=== PATIENT | male | born 1965 | race Caucasian/White ===

== ENCOUNTER 2025-07-21 20:19 | Inpatient (IN) | payer MEDICAID, OTHER ==
[~2025-07-21] VITALS: Ht 177.8 cm; Wt 101.1 kg
[~2025-07-21 20:19] MED LIST: CEPH-37 PO
--- NOTE | 2025-07-21 20:54 | ED.PDOC ---
History of Present Illness HPI Comments 59 year-old male presents to the ED via wheelchair with a chief complaint of constipation and urinary hesitation as of last week after a cruise. Patient reports lower back pain radiating to the R flank, as well as, associated symptoms of Nausea onset as of today. Patient reports taking x3 laxatives today with some relief, approx. X8 BM today. Patient states he is able to urinate properly when applying pressure via palpation to the abdomen. There are no further complaints or modifying factors at this time. Patient otherwise denies symptoms of hematuria, dysuria, N/V/D, fever, or chills. REVIEW OF SYSTEMS: General: No fever, no chills, or fatigue HEENT: No sore throat, no earache, no congestion, no neck pain. Cardiac: No chest pain. No palpitations. Lungs: No shortness of breath, no cough. GI: (+) nausea, (+) constipation, no vomiting, no diarrhea, no abdominal pain : (+) urinary hesitation, (+) flank pain, No dysuria. No hematuria. Musculoskeletal: (+) back pain, No joint pain , no joint swelling, no extremity edema. Skin: No rash, no itching. Neuro: No headache, no dizziness, no weakness (And as sated in HPI) PHYSICAL EXAM: General: Awake, alert and oriented. No acute distress. Skin: Skin in warm, dry and intact. Appropriate color for ethnicity. HEENT: The head is normocephalic and atraumatic. Conjunctivae are clear without exudates or hemorrhage. Sclera is non-icteric. Eyelids are normal in appearance without swelling or lesions. Oral mucosa is pink and moist Neck: The neck is supple with normal range of motion. No JVD. Cardiac: Heart rate and rhythm are normal. No murmurs, gallops, or rubs are auscultated. Respiratory: No signs of respiratory distress. Lung sounds are clear in all lobes bilaterally without rales, rhonchi, or wheezes. Abdominal: reducible umbilical hernia, no CVA tenderness, Normal Bowel Sounds in all four quadrants. Extremities: Lower extremities without edema. Neurological: The patient is awake, alert and oriented to person, place, and time with normal speech. Speech is clear. There is no facial asymmetry. Psychiatric: Appropriate mood and affect. Good judgement and insight. Chief Complaint: Flank Pain Time Seen by MD: 20:45 Primary Care Provider: DACIA Avila Notes: Medications, Allergies Allergies: Coded Allergies: NO KNOWN ALLERGIES (Unverified , 05/16/14) Home Meds Active Scripts Cephalexin (Keflex) 500 Mg Cap, 500 MG PO BID, #10 Prov:ARAMIS JIN MD 05/20/14 Information Source: Patient Mode of Arrival: Wheelchair Severity: Moderate Timing: Days Duration: Since onset Past Medical History Past Medical History (Other): hernia Surgical History: Hernia Repair Family History Family History: No family hx of Cancer, No family hx of DM, No family hx of Heart david Social History Smoker: Non-Smoker Alcohol: Rarely Drugs: Denies Drug Use Lives In: Home Was a procedure done? Was a procedure done?: No Differential Dx Considerations may include: Differential diagnoses considered include: Abdominal aortic aneurysm, MD, esophageal rupture, intestinal obstruction, mesenteric ischemia, perforated viscus or solid organ rupture, CHF with hepatomegaly, pneumonia, abscess, appendicitis, biliary disease, diverticulitis, gastritis, gastroenteritis, hepatitis, hernia, inflammatory bowel disease, pancreatitis, peptic ulcer disease, urinary tract infection, ureteral colic, constipation, GERD, irritable syndrome, abdominal wall pain, nonspecific abdominal pain, herpes zoster, nephrolithiasis. [ ]Also ruptured ectopic , ovarian torsion/cyst, tubo- ovarian abscess, PID, endometriosis, mittleschmerz. X-Ray, Labs, Meds, VS Vital Signs Date Time Temp Pulse Resp B/P (MAP) Pulse Ox O2 Delivery O2 Flow Rate FiO2 07/21/25 21:22 97.7 63 16 142/92 (109) 93 97.7 07/21/25 20:23 98.3 68 16 139/74 97 98.3 Lab Test 07/21/25 21:09 07/21/25 20:45 Range/Units White Blood Count 13.1 H 4.4-10.8 10^3/uL Red Blood Count 5.01 4.5-5.90 10^6/uL Hemoglobin 15.2 13.5-17.5 g/dL Hematocrit 44.3 41.0-53.0 % Mean Corpuscular Volume 88.4 80.0-100.0 fL Mean Corpuscular Hemoglobin 30.3 28.0-32.0 pg Mean Corpuscular Hemoglobin Concent 34.2 32.0-36.0 g/dL Red Cell Distribution Width 14.0 11.8-14.3 % Platelet Count 270 140-450 10^3/uL Mean Platelet Volume 8.7 6.9-10.8 fL Neutrophils (%) (Auto) 90.9 H 37.0-80.0 % Lymphocytes (%) (Auto) 4.3 L 10.0-50.0 % Monocytes (%) (Auto) 4.5 0.0-12.0 % Eosinophils (%) (Auto) 0.0 0.0-7.0 % Basophils (%) (Auto) 0.3 0.0-2.0 % Neutrophils # (Auto) 11.9 H 1.6-8.6 10 ^3/uL Lymphocytes # (Auto) 0.6 0.4-5.4 10 ^3/uL Monocytes # (Auto) 0.6 0-1.3 10 ^3/uL Eosinophils # (Auto) 0 0-0.8 10 ^3/uL Basophils # (Auto) 0 0-0.2 10 ^3/uL Nucleated Red Blood Cells 0.1 % Sodium Level 143 136-145 mmol/L Potassium Level 3.7 3.5-5.1 mmol/L Chloride Level 106 98-107 mmol/L Carbon Dioxide Level 23 20-31 mmol/L Anion Gap 14 5-15 Blood Urea Nitrogen 17 9-23 mg/dL Creatinine 1.55 H 0.700-1.30 mg/dL Glomerular Filtration Rate Calc 52 >90 mL/min BUN/Creatinine Ratio 11.0 10.0-20.0 Serum Glucose 186 H 74-106 mg/dL Lactic Acid Level 1.7 0.4-2.0 mmol/L Calcium Level 9.6 8.7-10.4 mg/dL Total Bilirubin 1.5 H 0.2-1.0 mg/dL Aspartate Amino Transferase (AST) 27 13-40 U/L Alanine Aminotransferase (ALT) 29 7-40 U/L Alkaline Phosphatase 61 46-116 U/L Total Protein 7.9 5.7-8.2 g/dL Albumin 4.6 3.2-4.8 g/dL Urine Color Yellow Yellow Urine Clarity Clear Clear Urine pH 5.5 5.0-9.0 Urine Specific [place] 1.024 1.001-1.035 Urine Protein Negative Negative Urine Ketones Negative Negative Urine Blood Negative Negative /uL Urine Nitrite Negative Negative Urine Bilirubin Negative Negative Urine Urobilinogen Normal Negative mg/dL Urine Leukocyte Esterase Negative Negative /uL Urine RBC <1 0 - 3 /hpf Urine Microscopic WBC < 1 0-3 /HPF Urine Squamous Epithelial Cells None seen <5 /hpf Urine Bacteria None seen None Seen /hpf Urine Mucus Few None Seen Urine Glucose Normal Normal mg/dL Current Medications Medications (Trade) Dose Ordered Sig/Joey Route Start Time Stop Time Status Last Admin Ketorolac Tromethamine (Toradol Injection) 30 mg ONCE ONCE IM 07/21/25 21:00 07/21/25 21:01 DC 07/21/25 21:20 Ondansetron HCl (Zofran Po) 4 mg ONCE ONCE PO 07/21/25 21:00 07/21/25 21:01 DC 07/21/25 21:19 [place] [id number] Ph: [phone] DIAGNOSTIC IMAGING Diagnostic Imaging Report : [id number] Signed [id number] UN[facility]: [id number] : 1965 LOC: ER ROOM / BED: / AGE / SEX: 59 / M ADM STATUS: REG ER SERVICE 45 ORDERING PHYSICIAN: HEIDI MALCOLM MD PROCEDURE(s): ABPL - CT AB PEL WO CON-NO ORAL OR IV REASON: low back pain, constipation, difficulty urinating, vomiting ORDER NUMBER(s): [id number], ACCESSION NUMBER(s): [id number] EXAM: CT CT AB PEL WO CON-NO ORAL OR IV INDICATION: low back pain, constipation, difficulty urinating, vomiting TECHNIQUE: Volumetric multidetector CT images of the abdomen and pelvis were obtained without contrast. All CT scans at this facility use dose modulation, iterative reconstruction, and/or weight based dosing when appropriate to reduce radiation dose to as low as reasonably achievable. COMPARISON: None FINDINGS: [LOWER CHEST]: The partially visualized lung bases are clear without a pleural effusion. The cardiac size is normal without pericardial effusion. [LIVER]: Normal hepatic size without suspicious focal lesion. [GALLBLADDER AND BILIARY TREE]: No cholelithiasis. [SPLEEN]: Unremarkable. [PANCREAS]: Unremarkable. [ADRENAL GLANDS]: Unremarkable [KIDNEYS]: Mild bilateral pelviectasis with mild bilateral hydroureter. No nephroureterolithiasis. No suspicious focal lesion. [BLADDER]: Severe prostatomegaly and appearance of outlet obstruction with urinary retention. [REPRODUCTIVE ORGANS]: [BOWEL/MESENTERY]: Stomach is normal. No CT evidence of bowel obstruction. [ASCITES]: Absent [LYMPHADENOPATHY]: No pathologically enlarged lymph nodes by CT size criteria [VASCULATURE]: No aneurysmal dilatation. [ABDOMINAL WALL]: Unremarkable. [MUSCULOSKELETAL]: No acute fracture or aggressive focal osseous lesion. Multifocal degenerative change of the visualized spine. IMPRESSION: 1. Severe prostatomegaly with appearance of urinary retention and bladder outlet obstruction. 2. Mild bilateral pelviectasis and hydroureter. Time of 1ST Reevaluation: 20:49 Reevaluation 1ST: Unchanged Patient Education/Counseling: Need For Follow Up Family Education/Counseling: No Family Present SEPSIS Sepsis Screen Date sepsis recognized/suspect: Jul 21, 2025 Time Sepsis recognized/suspect: 2024 Recent Procedure: No On Antibiotic Therapy: No Respiratory Rate >20: No Heart Rate >90: No Temp<36 C (96.8 F) or >38.3 C: No SBP <90 or MAP <65 mmHG: No New Acute Mental Status Change: No Is the patient on CPAP, BIPAP,: No Physician Orders Ct Ab Pel Wo Con-No Oral Or Iv (07/21/25 20:46) Insert Baker Catheter QSHIFT (07/21/25 21:48) Vital Signs Date Time Temp Pulse Resp B/P (MAP) Pulse Ox O2 Delivery O2 Flow Rate FiO2 07/21/25 21:22 97.7 63 16 142/92 (109) 93 97.7 07/21/25 20:23 98.3 68 16 139/74 97 98.3 Laboratory Tests Test 07/21/25 21:09 Lactic Acid Level 1.7 mmol/L (0.4-2.0) White Blood Count 13.1 10^3/uL (4.4-10.8) H Medications Medications Dose Ordered Sig/Joey Route Start Time Stop Time Status Last Admin Dose Admin Ketorolac Tromethamine 30 mg ONCE ONCE IM 07/21/25 21:00 07/21/25 21:01 DC 07/21/25 21:20 Ondansetron HCl 4 mg ONCE ONCE PO 07/21/25 21:00 07/21/25 21:01 DC 07/21/25 21:19 Departure 1 Departure Time of Disposition: 22:40 Impression: Primary Impression: Urinary retention Disposition: ADMITTED INPATIENT Condition: Stable Comments Patient admitted to hospitalist service for further treatment, evaluation and monitoring. Critical Care Note Critical Care Time?: No Stability Stability form required: No Heart Score Heart Score: Heart Score Response (Comments) Value History N/A 0 EKG N/A 0 Age N/A 0 Risk Factors N/A 0 Troponin N/A 0 Total 0 I personally scribed for HEIDI MALCOLM MD ([email or web address]) on 07/21/25 at 20:53. Electronically submitted by Rachel Uribe ([employer]). I personally scribed for HEIDI MALCOLM MD ([email or web address]) on 07/21/25 at 21:07. Electronically submitted by Rachel Uribe ([employer]). I personally scribed for HEIDI MALCOLM MD ([email or web address]) on 07/21/25 at 21:27. Electronically submitted by Rachel Uribe ([employer]). I personally scribed for HEIDI MALCOLM MD ([email or web address]) on 07/21/25 at 21:29. Electronically submitted by Rachel Uribe ([employer]). I personally scribed for HEIDI MALCOLM MD ([email or web address]) on 07/21/25 at 21:29. Electronically submitted by Rachel Uribe ([employer]). HEIDI MALCOLM MD Jul 21, 2025 20:53
[2025-07-21] MEDS: ONDANSETRON ODT 4 MG TAB PO ONE (21:19)
[2025-07-21] MEDS: KETOROLAC TROMETH 30 MG/ML 1ML VIAL IM ONE (21:20)
[2025-07-21] MEDS: ACETAMINOPHEN 500 MG TAB or CAP PO ONE (21:21)
--- NOTE | 2025-07-21 21:22 | DVH ---
EXAM: CT CT AB PEL WO CON-NO ORAL OR IV INDICATION: low back pain, constipation, difficulty urinating, vomiting TECHNIQUE: Volumetric multidetector CT images of the abdomen and pelvis were obtained without contrast. All CT scans at this facility use dose modulation, iterative reconstruction, and/or weight based dosing when appropriate to reduce radiation dose to as low as reasonably achievable. COMPARISON: None FINDINGS: [LOWER CHEST]: The partially visualized lung bases are clear without a pleural effusion. The cardiac size is normal without pericardial effusion. [LIVER]: Normal hepatic size without suspicious focal lesion. [GALLBLADDER AND BILIARY TREE]: No cholelithiasis. [SPLEEN]: Unremarkable. [PANCREAS]: Unremarkable. [ADRENAL GLANDS]: Unremarkable [KIDNEYS]: Mild bilateral pelviectasis with mild bilateral hydroureter. No nephroureterolithiasis. No suspicious focal lesion. [BLADDER]: Severe prostatomegaly and appearance of outlet obstruction with urinary retention. [REPRODUCTIVE ORGANS]: [BOWEL/MESENTERY]: Stomach is normal. No CT evidence of bowel obstruction. [ASCITES]: Absent [LYMPHADENOPATHY]: No pathologically enlarged lymph nodes by CT size criteria [VASCULATURE]: No aneurysmal dilatation. [ABDOMINAL WALL]: Unremarkable. [MUSCULOSKELETAL]: No acute fracture or aggressive focal osseous lesion. Multifocal degenerative change of the visualized spine. IMPRESSION: 1. Severe prostatomegaly with appearance of urinary retention and bladder outlet obstruction. 2. Mild bilateral pelviectasis and hydroureter.
[2025-07-21 21:37] LABS: Urine Protein, UAD Negative (Negative)
[2025-07-21 21:40] LABS: Alanine Aminotransferase 29 U/L (7-40); Albumin 4.6 g/dL (3.2-4.8); Alkaline Phosphatase 61 U/L (46-116); Anion Gap 14 (5-15); BUN/Creatinine Ratio 11.0 (10.0-20.0); Blood Urea Nitrogen 17 mg/dL (9-23); Calcium 9.6 mg/dL (8.7-10.4); Carbon Dioxide 23 mmol/L (20-31); Chloride 106 mmol/L (98-107); Potassium 3.7 mmol/L (3.5-5.1); Sodium 143 mmol/L (136-145); Total Protein 7.9 g/dL (5.7-8.2)
[2025-07-21 21:44] LABS: Bilirubin, Total 1.5 mg/dL (0.2-1.0); Glucose 186 mg/dL (74-106)
[2025-07-21 22:05] VITALS: PULSE 70; RESP 14; O2SAT 95
[2025-07-21 22:09] LABS: Hematocrit 44.3 % (41.0-53.0); Hemoglobin 15.2 g/dL (13.5-17.5); Mean Corpuscular Hemoglobin 30.3 pg (28.0-32.0); Mean Corpuscular Volume 88.4 fL (80.0-100.0); Nucleated Red Blood Cells % 0.1 %
[2025-07-22] MEDS ORDERED: ACETAMINOPHEN 325 MG TAB PO SCH
[2025-07-22] MEDS ORDERED: ONDANSETRON HCL 4 MG/2 ML VIAL IV PRN ×2 (00:15)
[2025-07-22 00:19] LABS: Phencyclidine Screen, Urine Neg (NEGATIVE)
[2025-07-22 00:21] LABS: Amphetamine Screen, Urine Neg (NEGATIVE); Barbiturate Scree,Urine Neg (NEGATIVE); Benzodiazephine Screen, Urine Neg (NEGATIVE); Cannabinoid Screen, Urine Neg (NEGATIVE); Cocaine Screen, Urine Neg (NEGATIVE); Opiate Scree,Urine Neg (NEGATIVE)
--- NOTE | 2025-07-22 00:53 | DVH ---
INDICATION: urinary retension TECHNIQUE: Multiple real-time sonographic images of the kidneys and bladder were obtained. COMPARISON: None FINDINGS: RIGHT kidney measures 11.5 cm in length. No stones or hydronephrosis. LEFT kidney measures 10.8 cm in length. No stones or hydronephrosis. Baker catheter in-situ, limiting assessment of the urinary bladder. Prostate gland is enlarged with estimated volume of 48 cc. IMPRESSION: BPH.
[2025-07-22] MEDS: SODIUM CHLORIDE 0.9% 500 ML IV ONE ×2 (01:30→14:23)
--- NOTE | 2025-07-22 01:31 | DVHHPRES ---
History of Present Illness Resident Creating Document: PETE BREWER RESIDENT History of Present Illness Patient is a 59-year-old male with no significant past medical history who presented to the ED with chief complaints of urinary urgency, difficulty urinating since 3 days while on a cruise. Patient states that earlier today he had bilateral flank pain as well as back pain which was 10/10 in intensity, nonradiating, constant, decreased after urination and defecation, and associated with nausea. Patient reports that he took laxatives and had 7 bowel movements which relieved his urinary symptoms. Patient also states that he has had similar symptoms 1 time in the past year. PSHx: Three inguinal repairs Family history: father had non-Hodgkin lymphoma Social history: denies smoking, drinking, drug use Home medication: denies any home medication Allergic history: denies Patient seen at bedside. Patient at this time does not complain of any pain, nausea, vomiting, Fever, chills, diarrhea. Patient has had multiple bowel movements. Review of Systems Constitutional: No: Fever, Chills, Sweats, Weakness, Malaise, Other Eyes: No: Pain, Vision change, Conjunctivae inflammation, Eyelid inflammation, Other, Redness ENT: No: Ear pain, Ear discharge, Nose pain, Nose discharge, Nose congestion, Mouth pain, Mouth swelling, Throat pain, Throat swelling, Other Respiratory: No: Cough, Dry, Shortness of breath, SOB with excertion, Wheezing, Hemoptysis, Pleuritic Pain, Sputum, Wheezing, Other Cardiovascular: No: Chest Pain, Palpitations, Orthopnea, Paroxysmal Noc. Dyspnea, Edema, Lt Headedness, Other Gastrointestinal: Nausea; No: Vomiting, Abdominal Pain, Diarrhea, Constipation, Melena, Hematochezia, Other Genitourinary: Dysuria, Frequency, Retention, Other (Bilateral Flank pain) Musculoskeletal: back pain; No: other, neck pain, shoulder pain, arm pain, hand pain, leg pain, foot pain Skin: No: Rash, Lesions, Jaundice, Bruising, Other Neurological: No: Weakness, Numbness, Incoordination, Change in speech, Confusion, Seizures, Other Allergies: Coded Allergies: NO KNOWN ALLERGIES (Unverified , 05/16/14) Exam Vital Signs Vital Signs Date Time Temp Pulse Resp B/P (MAP) Pulse Ox O2 Delivery O2 Flow Rate FiO2 07/21/25 21:22 97.7 63 16 142/92 (109) 93 97.7 Exam General: Patient alert and oriented in person, place and time. Patient following commands. HEENT: Normocephalic, atraumatic, moist mucous membranes Respiratory/pulmonary: Clear lungs bilaterally, vesicular murmurs present in almost all lung dykes, no associated crackles or wheezes. Cardiovascular: Normal heart sounds S1 and S2 with no associated murmurs Abdomen: Abdomen nondistended, there is no pain to palpation in any of the abdominal quadrants, no palpable masses. Baker catheter in place. Extremities: There is no peripheral edema present at the lower extremities. Peripheral Pulses: 3+ Radial (R). 3+ Radial (L). 3+ Dorsalis pedis (R). 3+ Dorsalis pedis(L) Skin: No rashes or pruritus, there is no sacral edema present at this time. Neurological: Intact cranial nerves with no focal neurologic deficits Labs/Xrays Labs Test 07/21/25 21:09 07/21/25 20:45 Range/Units White Blood Count 13.1 H 4.4-10.8 10^3/uL Red Blood Count 5.01 4.5-5.90 10^6/uL Hemoglobin 15.2 13.5-17.5 g/dL Hematocrit 44.3 41.0-53.0 % Mean Corpuscular Volume 88.4 80.0-100.0 fL Mean Corpuscular Hemoglobin 30.3 28.0-32.0 pg Mean Corpuscular Hemoglobin Concent 34.2 32.0-36.0 g/dL Red Cell Distribution Width 14.0 11.8-14.3 % Platelet Count 270 140-450 10^3/uL Mean Platelet Volume 8.7 6.9-10.8 fL Neutrophils (%) (Auto) 90.9 H 37.0-80.0 % Lymphocytes (%) (Auto) 4.3 L 10.0-50.0 % Monocytes (%) (Auto) 4.5 0.0-12.0 % Eosinophils (%) (Auto) 0.0 0.0-7.0 % Basophils (%) (Auto) 0.3 0.0-2.0 % Neutrophils # (Auto) 11.9 H 1.6-8.6 10 ^3/uL Lymphocytes # (Auto) 0.6 0.4-5.4 10 ^3/uL Monocytes # (Auto) 0.6 0-1.3 10 ^3/uL Eosinophils # (Auto) 0 0-0.8 10 ^3/uL Basophils # (Auto) 0 0-0.2 10 ^3/uL Nucleated Red Blood Cells 0.1 % Sodium Level 143 136-145 mmol/L Potassium Level 3.7 3.5-5.1 mmol/L Chloride Level 106 98-107 mmol/L Carbon Dioxide Level 23 20-31 mmol/L Anion Gap 14 5-15 Blood Urea Nitrogen 17 9-23 mg/dL Creatinine 1.55 H 0.700-1.30 mg/dL Glomerular Filtration Rate Calc 52 >90 mL/min BUN/Creatinine Ratio 11.0 10.0-20.0 Serum Glucose 186 H 74-106 mg/dL Lactic Acid Level 1.7 0.4-2.0 mmol/L Calcium Level 9.6 8.7-10.4 mg/dL Total Bilirubin 1.5 H 0.2-1.0 mg/dL Aspartate Amino Transferase (AST) 27 13-40 U/L Alanine Aminotransferase (ALT) 29 7-40 U/L Alkaline Phosphatase 61 46-116 U/L Total Protein 7.9 5.7-8.2 g/dL Albumin 4.6 3.2-4.8 g/dL Urine Color Yellow Yellow Urine Clarity Clear Clear Urine pH 5.5 5.0-9.0 Urine Specific [place] 1.024 1.001-1.035 Urine Protein Negative Negative Urine Ketones Negative Negative Urine Blood Negative Negative /uL Urine Nitrite Negative Negative Urine Bilirubin Negative Negative Urine Urobilinogen Normal Negative mg/dL Urine Leukocyte Esterase Negative Negative /uL Urine RBC <1 0 - 3 /hpf Urine Microscopic WBC < 1 0-3 /HPF Urine Squamous Epithelial Cells None seen <5 /hpf Urine Bacteria None seen None Seen /hpf Urine Mucus Few None Seen Urine Glucose Normal Normal mg/dL Urine Opiates Screen Neg NEGATIVE Urine Fentanyl Screen Neg NEGATIVE Urine Barbiturates Screen Neg NEGATIVE Urine Phencyclidine Screen Neg NEGATIVE Urine Amphetamines Screen Neg NEGATIVE Urine Benzodiazepines Screen Neg NEGATIVE Urine Cocaine Screen Neg NEGATIVE Urine Cannabinoids Screen Neg NEGATIVE SEPSIS Sepsis Screen Date sepsis recognized/suspect: Jul 22, 2025 Time Sepsis recognized/suspect: 2254 Recent Procedure: No On Antibiotic Therapy: No Respiratory Rate >20: No Heart Rate >90: No Temp<36 C (96.8 F) or >38.3 C: No SBP <90 or MAP <65 mmHG: No New Acute Mental Status Change: No Is the patient on CPAP, BIPAP,: No Physician Orders Ct Ab Pel Wo Con-No Oral Or Iv (07/21/25 20:46) Insert Baker Catheter QSHIFT (07/21/25 21:48) Admit (07/21/25 23:46) Code Status (07/21/25:46) Complete Blood Count (07/22/25 04:00) Comprehensive Metabolic Panel (07/22/25 04:00) Condition: Critical (07/21/25 23:46) Bedrest With Bathroom Privileg (07/21/25 23:46) Stat Ekg For Chest Pain (07/21/25 23:46) Notify Md Of Changes From Base (07/21/25 23:46) 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 (07/21/25 23:46) Emergency Dysrhythmia Protocol (07/21/25 23:46) Rhythm Strips Once Every Shift (07/21/25 23:46) Psa Total+% Free (07/21/25 23:46) * Urology Consult (07/21/25 23:46) Strict I & O QSHIFT (07/21/25 23:46) Kidney (07/22/25 00:00) Ondansetron Hcl (Zofran) (07/22/25 00:15) Acetaminophen Tablet (Tylenol Tablet) (07/22/25 00:15) Tamsulosin Hydrochloride (Flomax) (07/22/25 18:00) Regular Diet (07/22/25 Breakfast) Pantoprazole Tablet (Protonix Tablet) (07/22/25 06:00) Enoxaparin Sodium (Lovenox) (07/22/25 01:30) Vital Signs Date Time Temp Pulse Resp B/P (MAP) Pulse Ox O2 Delivery O2 Flow Rate FiO2 07/21/25 21:22 97.7 63 16 142/92 (109) 93 97.7 07/21/25 20:23 98.3 68 16 139/74 97 98.3 Laboratory Tests Test 07/21/25 21:09 Lactic Acid Level 1.7 mmol/L (0.4-2.0) White Blood Count 13.1 10^3/uL (4.4-10.8) H Medications Medications Dose Ordered Sig/Joey Route Start Time Stop Time Status Last Admin Dose Admin Ketorolac Tromethamine 30 mg ONCE ONCE IM 07/21/25 21:00 07/21/25 21:01 DC 07/21/25 21:20 30 MG Ondansetron HCl 4 mg ONCE ONCE PO 07/21/25 21:00 07/21/25 21:01 DC 07/21/25 21:19 4 MG Assessment/Plan Assessment/Plan BPH Urinary retention Hydronephrosis AZAM due to be [place] SIRS positive with AZAM - CT abdomen showed Severe prostatomegaly with appearance of urinary retention and bladder outlet obstruction. Mild bilateral pelviectasis and hydroureter. - renal ultrasound: - IV fluids - pain management - tamsulosin 0.4 - urology consulted Regular diet PPI prophylaxis: Protonix DVT prophylaxis: Lovenox Goals of care addressed with the patient for more than 27 minutes: Full code status Case discussed with Dr. Salvador , patient and nurse Plan discussed with: Patient My Orders Orders - PETE BREWER RESIDENT Procedure Category Date Status Time Admit ADMIT 07/21/25 Transmitted 23:46 Code Status CODE 07/21/25 Transmitted 23:46 Complete Blood Count LAB 07/22/25 Logged 04:00 Comprehensive LAB 07/22/25 Logged Metabolic Panel 04:00 Condition: Critical [facility] 07/21/25 In Process 23:46 Bedrest With Bathroom [facility] 07/21/25 In Process Privileg 23:46 Stat Ekg For Chest [facility] 07/21/25 In Process Pain 23:46 Notify Md Of Changes [facility] 07/21/25 In Process From Base 23:46 Petroleum Plant Operator For [facility] 07/21/25 In Process 24 Hours 23:46 Emergency Dysrhythmia [facility] 07/21/25 In Process Protocol 23:46 Rhythm Strips Once [facility] 07/21/25 In Process Every Shift 23:46 Psa Total+% Free LAB 07/21/25 In Process 23:46 * Urology Consult CONS 07/21/25 Transmitted 23:46 Strict I & O NIDHI 07/21/25 In Process 23:46 Kidney US 07/22/25 Resulted 00:00 Ondansetron Hcl PHA 07/22/25 In Process (Zofran) 00:15 Acetaminophen Tablet PHA 07/22/25 In Process (Tylenol Tablet) 00:15 Tamsulosin PHA 07/22/25 In Process Hydrochloride (Flomax) 18:00 Regular Diet DIET 07/22/25 Verified Breakfast Pantoprazole Tablet PHA 07/22/25 Verified (Protonix Tablet) 06:00 Enoxaparin Sodium PHA 07/22/25 Verified (Lovenox) 01:30 Visit Coding STANDARD RES Billing Provider: OSORIO SALVADOR MD Date of Service if different f: Jul 22, 2025 Common Visit Codes: [id number] INP/OBS CARE (HIGH) Secondary Visit Codes: [id number] CARE PLAN 30 MINUTES PETE BREWER RESIDENT Jul 22, 2025 01:31
[2025-07-22] MEDS: ENOXAPARIN SOD 40 MG/0.4 ML SYRINGE SC ONE (01:57)
[2025-07-22 04:03] VITALS: BP 119/69; PULSE 54; RESP 17; TEMP 97.7; O2SAT 97
[2025-07-22 04:24] VITALS: BP 119/69; PULSE 54; RESP 17; TEMP 97.7; O2SAT 97
[2025-07-22] MEDS: ACETAMINOPHEN 325 MG TAB PO SCH (06:00)
[2025-07-22] MEDS: PANTOPRAZOLE 40 MG TAB PO SCH (06:06)
[2025-07-22 06:08] LABS: Hematocrit 39.7 % (41.0-53.0); Hemoglobin 13.7 g/dL (13.5-17.5); Mean Corpuscular Hemoglobin 30.9 pg (28.0-32.0); Mean Corpuscular Volume 89.5 fL (80.0-100.0); Nucleated Red Blood Cells % 0.0 %
[2025-07-22 06:32] LABS: Alanine Aminotransferase 25 U/L (7-40); Albumin 4.1 g/dL (3.2-4.8); Alkaline Phosphatase 49 U/L (46-116); Anion Gap 13 (5-15); BUN/Creatinine Ratio 15.6 (10.0-20.0); Blood Urea Nitrogen 21 mg/dL (9-23); Calcium 9.1 mg/dL (8.7-10.4); Carbon Dioxide 27 mmol/L (20-31); Chloride 104 mmol/L (98-107); Potassium 4.0 mmol/L (3.5-5.1); Sodium 144 mmol/L (136-145); Total Protein 6.8 g/dL (5.7-8.2)
[2025-07-22 06:35] LABS: Bilirubin, Total 1.5 mg/dL (0.2-1.0); Glucose 178 mg/dL (74-106)
[2025-07-22 09:00] VITALS: BP 107/63; PULSE 56; RESP 18; TEMP 99; O2SAT 95
--- NOTE | 2025-07-22 09:03 | DVH ---
INDICATION: Elevated bilirubin, rule out cirrhosis/steatosis TECHNIQUE: Multiple real-time sonographic images of the abdomen were obtained. COMPARISON: None FINDINGS: The liver is heterogeneous in echogenicity. The liver measures 14cm. No intrahepatic biliary ductal dilatation is noted. The gallbladder wall measures 0.2 cm and is unremarkable. No gallstones or sludge is seen. The common duct measures 0.4 cm and is unremarkable. No pericholecystic fluid is noted. The right kidney measures 11cm. No hydronephrosis. The spleen measures 11cm, within normal limits. The echogenicity is within normal limits. The pancreas is not well visualized due to obscuration from bowel gas. The visualized portions of the IVC and aorta are grossly unremarkable. IMPRESSION: Hepatic steatosis.
[2025-07-22 13:00] VITALS: BP 95/62; PULSE 62; RESP 18; TEMP 97; O2SAT 96
[2025-07-22 13:51] LABS: INR 0.98 (0.9-1.15); Partial Thromboplastin Time 28.4 SEC (24.5-34.5); Prothrombin Time 10.4 sec (9.3-11.8)
--- NOTE | 2025-07-22 14:24 | DVHINCON2 ---
Date of service: Jul 22, 2025 Referring Physician Hospitalist Reason for Consultation Urinary retention Severe prostatemegaly History of Present Illness 59-year-old male with no significant past medical history who presented to the ED with chief complaints of urinary urgency, difficulty urinating since 3 days while on a cruise. Patient states that earlier today he had bilateral flank pain as well as back pain which was 10/10 in intensity, nonradiating, constant, decreased after urination and defecation, and associated with nausea. Patient reports that he took laxatives and had 7 bowel movements which relieved his urinary symptoms. Patient also states that he has had similar symptoms 1 time in the past year. Past Surgical History Three inguinal hernia repairs Family History: FH: cancer G8 FATHER Family history: Cardiovascular disease G8 MOTHER, G8 FATHER Ischemic heart disease G8 MOTHER, Allergies: Coded Allergies: NO KNOWN ALLERGIES (Unverified , 05/16/14) Home Meds No Active Prescriptions or Reported Meds Current Medications Current Medications Medications (Trade) Dose Ordered Sig/Joey Route PRN Reason Start Time Stop Time Status Last Admin Ondansetron HCl (Zofran) 4 mg Q4HP PRN IV NAUSEA / VOMITING 07/22/25 00:00 07/22/25 00:04 DC Acetaminophen (Tylenol Tablet) 650 mg Q6HR PO 07/22/25 00:00 07/22/25 00:04 DC Tamsulosin HCl (Flomax) 0.4 mg QPM PO 07/22/25 18:00 07/22/25 00:04 DC Ondansetron HCl (Zofran) 4 mg Q4HP PRN IV NAUSEA / VOMITING 07/22/25 00:15 Acetaminophen (Tylenol Tablet) 650 mg Q6HR PO 07/22/25 00:15 07/22/25 12:51 Tamsulosin HCl (Flomax) 0.4 mg QPM PO 07/22/25 18:00 07/22/25 04:07 DC Pantoprazole Sodium (Protonix Tablet) 40 mg DAILY@0600 PO 07/22/25 06:00 07/22/25 06:06 Tamsulosin HCl (Flomax) 0.8 mg QPM PO 07/22/25 18:00 Heparin Sodium (Porcine) 5,000 units Q12HR SC 07/22/25 22:00 Review of Systems Constitutional: No: Fever, Chills, Sweats, Weakness, Malaise, Other Eyes: No: Pain, Vision change, Conjunctivae inflammation, Eyelid inflammation, Other, Redness ENT: No: Ear pain, Ear discharge, Nose pain, Nose discharge, Nose congestion, Mouth pain, Mouth swelling, Throat pain, Throat swelling, Other Respiratory: No: Cough, Dry, Shortness of breath, SOB with excertion, Wheezing, Hemoptysis, Pleuritic Pain, Sputum, Wheezing, Other Cardiovascular: No: Chest Pain, Palpitations, Orthopnea, Paroxysmal Noc. Dyspnea, Edema, Lt Headedness, Other Gastrointestinal: Nausea; No: Vomiting, Abdominal Pain, Diarrhea, Constipation, Melena, Hematochezia, Other Genitourinary: Dysuria, Frequency, Retention, Other (Bilateral Flank pain) Musculoskeletal: back pain; No: other, neck pain, shoulder pain, arm pain, hand pain, leg pain, foot pain Skin: No: Rash, Lesions, Jaundice, Bruising, Other Neurological: No: Weakness, Numbness, Incoordination, Change in speech, Confusion, Seizures, Other Allergies: Coded Allergies: NO KNOWN ALLERGIES (Unverified , 05/16/14) Vital Signs Vital Signs Date Time Temp Pulse Resp B/P (MAP) Pulse Ox O2 Delivery O2 Flow Rate FiO2 07/22/25 13:00 97.0 62 18 95/62 (73) 96 97.0 07/22/25 08:00 Room Air* 0 21 Physical Exam Vital Signs Date Time Temp Pulse Resp B/P (MAP) Pulse Ox O2 Delivery O2 Flow Rate FiO2 07/21/25 21:22 97.7 63 16 142/92 (109) 93 97.7 Exam General: Patient alert and oriented in person, place and time. Patient following commands. HEENT: Normocephalic, atraumatic, moist mucous membranes Respiratory/pulmonary: Clear lungs bilaterally, vesicular murmurs present in almost all lung dykes, no associated crackles or wheezes. Cardiovascular: Normal heart sounds S1 and S2 with no associated murmurs Abdomen: Abdomen nondistended, there is no pain to palpation in any of the abdominal quadrants, no palpable masses. Baker catheter in place. Extremities: There is no peripheral edema present at the lower extremities. Peripheral Pulses: 3+ Radial (R). 3+ Radial (L). 3+ Dorsalis pedis (R). 3+ Dorsalis pedis(L) Skin: No rashes or pruritus, there is no sacral edema present at this time. Neurological: Intact cranial nerves with no focal neurologic deficits Labs/Diagnostic Data Labs Test 07/22/25 13:23 07/22/25 04:50 07/21/25 21:09 07/21/25 20:45 Range/Units Prothrombin Time 10.4 9.3-11.8 sec Prothrombin Time INR 0.98 0.9-1.15 Activated Partial Thromboplast Time 28.4 24.5-34.5 SEC White Blood Count 9.7 # 4.4-10.8 10^3/uL Red Blood Count 4.44 L 4.5-5.90 10^6/uL Hemoglobin 13.7 13.5-17.5 g/dL Hematocrit 39.7 #L 41.0-53.0 % Mean Corpuscular Volume 89.5 80.0-100.0 fL Mean Corpuscular Hemoglobin 30.9 28.0-32.0 pg Mean Corpuscular Hemoglobin Concent 34.5 32.0-36.0 g/dL Red Cell Distribution Width 13.9 11.8-14.3 % Platelet Count 233 140-450 10^3/uL Mean Platelet Volume 8.5 6.9-10.8 fL Neutrophils (%) (Auto) 77.8 37.0-80.0 % Lymphocytes (%) (Auto) 14.5 10.0-50.0 % Monocytes (%) (Auto) 7.5 0.0-12.0 % Eosinophils (%) (Auto) 0.1 0.0-7.0 % Basophils (%) (Auto) 0.1 0.0-2.0 % Neutrophils # (Auto) 7.5 1.6-8.6 10 ^3/uL Lymphocytes # (Auto) 1.4 0.4-5.4 10 ^3/uL Monocytes # (Auto) 0.7 0-1.3 10 ^3/uL Eosinophils # (Auto) 0 0-0.8 10 ^3/uL Basophils # (Auto) 0 0-0.2 10 ^3/uL Nucleated Red Blood Cells 0.0 % Sodium Level 144 136-145 mmol/L Potassium Level 4.0 3.5-5.1 mmol/L Chloride Level 104 98-107 mmol/L Carbon Dioxide Level 27 20-31 mmol/L Anion Gap 13 5-15 Blood Urea Nitrogen 21 9-23 mg/dL Creatinine 1.35 H 0.700-1.30 mg/dL Glomerular Filtration Rate Calc 61 >90 mL/min BUN/Creatinine Ratio 15.6 10.0-20.0 Serum Glucose 178 H 74-106 mg/dL Hemoglobin A1c 6.1 H <5.7 % A1C Calcium Level 9.1 8.7-10.4 mg/dL Total Bilirubin 1.5 H 0.2-1.0 mg/dL Direct Bilirubin 0.5 H <0.3 mg/dL Aspartate Amino Transferase (AST) 23 13-40 U/L Alanine Aminotransferase (ALT) 25 7-40 U/L Alkaline Phosphatase 49 46-116 U/L Lactate Dehydrogenase 248 H 120-246 U/L Total Protein 6.8 5.7-8.2 g/dL Albumin 4.1 3.2-4.8 g/dL Vitamin B12 Level 475 211-911 pg/mL Vitamin D 25-Hydroxy 34.0 30.0-100 ng/mL Folic Acid 23.69 >5.38 ng/mL Thyroid Stimulating Hormone (TSH) 0.24 L 0.55-4.78 uIU/mL Lactic Acid Level 1.7 0.4-2.0 mmol/L Urine Color Yellow Yellow Urine Clarity Clear Clear Urine pH 5.5 5.0-9.0 Urine Specific [place] 1.024 1.001-1.035 Urine Protein Negative Negative Urine Ketones Negative Negative Urine Blood Negative Negative /uL Urine Nitrite Negative Negative Urine Bilirubin Negative Negative Urine Urobilinogen Normal Negative mg/dL Urine Leukocyte Esterase Negative Negative /uL Urine RBC <1 0 - 3 /hpf Urine Microscopic WBC < 1 0-3 /HPF Urine Squamous Epithelial Cells None seen <5 /hpf Urine Bacteria None seen None Seen /hpf Urine Mucus Few None Seen Urine Glucose Normal Normal mg/dL Urine Opiates Screen Neg NEGATIVE Urine Fentanyl Screen Neg NEGATIVE Urine Barbiturates Screen Neg NEGATIVE Urine Phencyclidine Screen Neg NEGATIVE Urine Amphetamines Screen Neg NEGATIVE Urine Benzodiazepines Screen Neg NEGATIVE Urine Cocaine Screen Neg NEGATIVE Urine Cannabinoids Screen Neg NEGATIVE Assessment BPH Urinary retention Azotemia creatinine 1.55 Plan/Recommendation Baker to gravity and leg bag for discharge PSA OUtpatient cystoscopy TBA Plan discussed with: Patient, Other EZIO ANGELO MD Jul 22, 2025 14:24
--- NOTE | 2025-07-22 16:23 | DVHPNRES ---
Progress Note Date Seen: Jul 22, 2025 Resident Creating Document: RAMANA WALLER RESIDENT Medical Necessity Reason Pt with a Central, PICC or Fol: No Subjective Review of Systems Patient is 59 years old male with no significant past medical history came with a complaint of acute retention of urine. Patient reported he has been having urinary dribbling, urgency, difficulty in micturition time to time which got worse for last 3 days. Patient reported he used to take over the counter medication from [employer] which helped him with the urinary problem but last 3 days he had difficulty in urinating has been some nausea. Patient denied any fever, leg swelling, chest pain, shortness of breaths, change in vision. Initial lab workup revealed leukocytosis WBC 13.1, neutrophilic leukocytosis with neutrophil 90.9, serum creatinine 1.55, GFR 52. Total bilirubin 1.5, indirect bilirubin 0.5, LDH 248, INR 0.98. UDS negative, urinalysis negative for UTI. CT abdomen and pelvis Severe prostatomegaly with appearance of urinary retention and bladder outlet obstruction. Mild bilateral pelviectasis and hydroureter. Renal ultrasound revealed BPH. Liver ultrasound revealed hepatic steatosis. PMH-nonsignificant PSH- hernia repair Allergy-and kidney Personal History/ Social History- denies smoking/alcoholism/drug abuse ROS Cardiovascular- deny acute chest pain or shortness of breath or cough or palpitation Respiratory denies cough or short of breath or wheezing Gastrointestinal- nausea Musculoskeletal-denies acute joint swelling or tenderness or redness Neurological- denies acute dysarthria, dysphagia, change in vision Psychiatry- denies depression or SI or HI Skin- denies acute rash or purpura Patient was seen today at bedside Labs and chart reviewed Patient on Baker's catheter with a high color urine Ordered repeat urine analysis Patient was seen by Urology, recommended outpatient cystoscopy Serum creatinine trending down, Ordered normal saline intravenous 500 mL Pending PSA Patient on Flomax and finasteride Objective vital signs Vital Sign Date Time Temp Pulse Resp B/P (MAP) Pulse Ox O2 Delivery O2 Flow Rate FiO2 07/22/25 13:00 97.0 62 18 95/62 (73) 96 97.0 07/22/25 08:00 Room Air* 0 21 Total Intake and Output 07/21/25 07/21/25 07/22/25 15:00 23:00 07:00 Intake Total 836 ml Balance 836 ml medications Current Medications Medications Dose Ordered Sig/Joey Route Start Time Stop Time Status Last Admin Dose Admin Ondansetron HCl 4 mg Q4HP PRN IV 07/22/25 00:15 Acetaminophen 650 mg Q6HR PO 07/22/25 00:15 07/22/25 12:51 650 MG Pantoprazole Sodium 40 mg DAILY@0600 PO 07/22/25 06:00 07/22/25 06:06 40 MG Tamsulosin HCl 0.8 mg QPM PO 07/22/25 18:00 Heparin Sodium (Porcine) 5,000 units Q12HR SC 07/22/25 22:00 Finasteride 5 mg DAILY PO 07/23/25 10:00 UNV Examination General examination- awake, alert, oriented HEENT- PEERLA, no acute nasal discharge Cardiovascular- S1-S2 audible, rate and rhythm regular, no murmur Respiratory- CTAB, no wheeze or rhonchi Gastrointestinal-nontender, bowel sound+. Nondistended Musculoskeletal-no acute joint swelling or tenderness or redness Lower extremity- no leg edema Neurological- cranial nerves intact, no acute dysarthria or dysphagia Psychiatry- denies depression or SI or HI Skin- no acute rash or purpura laboratory and microbiology Laboratory Tests 07/22/25 04:50 Test 07/22/25 04:50 Range/Units Serum Glucose 178 H 74-106 mg/dL Problem List/Assessment/Plan Problem List/Assessment/Plan Assessment and plan # obstructive uropathy likely due to BPH # acute retention urine likely due to above # bilateral hydroureter likely due to above -patient on Baker's catheter -continue Flomax and finasteride as prescribed -avoid dehydration and constipation -monitor renal function test # hyperbilirubinemia likely due to hepatic steatosis -monitor liver liver enzymes 75 mg test # post renal AZAM likely due to BPH -status post IV fluid -avoid dehydration and nephrotoxic drugs Goals of care, Code status ; discussed with >15 minutes PUD prophylaxis: Pantoprazole DVT prophylaxis: Lovenox Plan discussed with Dr. Vaz , nursing staff, Total time spent on patient evaluation, chart review, assessment and plan, discussion discussion >35 minutes Plan discussed with: Patient, Other (RN) My Orders My Orders Orders - RAMANA WALLER RESIDENT Procedure Category Date Status Time LIVER US 12/17/25 Resulted 07:42 Heparin Sodium PHA 07/22/25 In Process (Porcine) 22:00 Urinalysis LAB 07/22/25 Logged 16:02 Visit Coding STANDARD RES Billing Provider: RENA MARTINEZ MD Date of Service if different f: Jul 22, 2025 Common Visit Codes: [id number] INP/OBS CARE(HIGH) RAMANA WALLER RESIDENT Jul 22, 2025 16:23 SALONI MCCONNELL RESIDENT Jul 23, 2025 16:55
[2025-07-22 17:00] VITALS: BP_SYST 100; BP_SYST 149; BP_DIAS 104; BP_DIAS 69; PULSE 62; PULSE 67; RESP 18; TEMP 97.7; TEMP 98.2; O2SAT 100; O2SAT 95
[2025-07-22 17:12] LABS: Urine Protein, UAD 1+ (Negative)
[2025-07-22 17:14] LABS: Free T3 2.8 pg/mL (2.3-4.2); Free T4 (Free Thyroxine) 0.91 ng/dL (0.89-1.76)
[2025-07-22] MEDS ORDERED: TAMSULOSIN HYDROCHLORIDE 0.4 MG CAP PO SCH ×2 (18:00)
[2025-07-22] MEDS: TAMSULOSIN HYDROCHLORIDE 0.4 MG CAP PO SCH (18:18)
[2025-07-22] MEDS: FINASTERIDE 5 MG TAB PO ONE (18:20)
[2025-07-22 21:00] VITALS: BP 104/69; PULSE 74; RESP 20; TEMP 98.3; O2SAT 93
[2025-07-22] MEDS: HEPARIN SODIUM (PORCINE) 5000 UNITS/ML 1ML VIAL SC SCH (21:48)
[2025-07-23 00:43] VITALS: BP 113/77; PULSE 60; RESP 18; TEMP 98; O2SAT 96
[2025-07-23 04:07] LABS: Prostate Specific Antigen 10.4 ng/mL (0.0-4.0)
[2025-07-23 05:00] VITALS: BP 119/77; PULSE 75; RESP 18; TEMP 98; O2SAT 95
[2025-07-23 05:08] LABS: Prostate Specific Antigen 8.8 ng/mL (0.0-4.0)
[2025-07-23 06:40] LABS: Hematocrit 40.2 % (41.0-53.0); Hemoglobin 13.9 g/dL (13.5-17.5); Mean Corpuscular Hemoglobin 30.9 pg (28.0-32.0); Mean Corpuscular Volume 89.3 fL (80.0-100.0); Nucleated Red Blood Cells % 0.1 %
[2025-07-23 07:01] LABS: Alanine Aminotransferase 21 U/L (7-40); Alkaline Phosphatase 47 U/L (46-116); Anion Gap 9 (5-15); BUN/Creatinine Ratio 18.4 (10.0-20.0); Blood Urea Nitrogen 16 mg/dL (9-23); Calcium 8.9 mg/dL (8.7-10.4); Carbon Dioxide 27 mmol/L (20-31); Glucose 97 mg/dL (74-106); Potassium 4.0 mmol/L (3.5-5.1); Sodium 144 mmol/L (136-145)
[2025-07-23 07:02] LABS: Magnesium 2.1 mg/dL (1.6-2.6); Total Protein 6.4 g/dL (5.7-8.2)
[2025-07-23 07:03] LABS: Albumin 3.7 g/dL (3.2-4.8); Bilirubin, Total 1.1 mg/dL (0.2-1.0)
[2025-07-23 07:14] LABS: Chloride 108 mmol/L (98-107)
[2025-07-23 08:35] VITALS: BP 113/76; PULSE 58; RESP 18; TEMP 97.7; O2SAT 97
[2025-07-23] MEDS: FINASTERIDE 5 MG TAB PO SCH (09:07)
[2025-07-23] MEDS: SODIUM CHLORIDE 0.9% 500 ML IV ONE (09:08)
[2025-07-23 12:17] VITALS: TEMP 36.5
[2025-07-23] MEDS ORDERED: FINA5TAB4 PO (12:35)
[2025-07-23] MEDS ORDERED: CEPH250C PO (12:35)
[2025-07-23] MEDS ORDERED: TAMS-35 PO (12:35)
[2025-07-23] MEDS: SODIUM CHLORIDE 0.9% 2,000 ML IV ONE (14:00)
[2025-07-23 14:54] LABS: Hematocrit 39.3 % (41.0-53.0); Hemoglobin 13.4 g/dL (13.5-17.5)
[2025-07-23 17:00] VITALS: BP 121/77; PULSE 63; RESP 20; TEMP 97.8; O2SAT 97
[2025-07-23 21:00] VITALS: BP 110/75; PULSE 71; RESP 18; TEMP 97.1; O2SAT 95
[2025-07-24 01:00] VITALS: BP 120/80; PULSE 62; RESP 17; TEMP 97.5; O2SAT 97
[2025-07-24 02:39] LABS: Hematocrit 37.3 % (41.0-53.0); Hemoglobin 12.8 g/dL (13.5-17.5)
[2025-07-24 05:00] VITALS: BP 122/72; PULSE 58; RESP 16; TEMP 97.7; O2SAT 95
--- NOTE | 2025-07-24 06:50 | DVHPNRES ---
Progress Note Date Seen: Jul 23, 2025 Resident Creating Document: RAMANA WALLER RESIDENT Medical Necessity Reason Pt with a Central, PICC or Fol: No Subjective Review of Systems Patient is 59 years old male with no significant past medical history came with a complaint of acute retention of urine. Patient reported he has been having urinary dribbling, urgency, difficulty in micturition time to time which got worse for last 3 days. Patient reported he used to take over the counter medication from [employer] which helped him with the urinary problem but last 3 days he had difficulty in urinating has been some nausea. Patient denied any fever, leg swelling, chest pain, shortness of breaths, change in vision. Initial lab workup revealed leukocytosis WBC 13.1, neutrophilic leukocytosis with neutrophil 90.9, serum creatinine 1.55, GFR 52. Total bilirubin 1.5, indirect bilirubin 0.5, LDH 248, INR 0.98. UDS negative, urinalysis negative for UTI. CT abdomen and pelvis Severe prostatomegaly with appearance of urinary retention and bladder outlet obstruction. Mild bilateral pelviectasis and hydroureter. Renal ultrasound revealed BPH. Liver ultrasound revealed hepatic steatosis. PMH-nonsignificant PSH- hernia repair Allergy-and kidney Personal History/ Social History- denies smoking/alcoholism/drug abuse ROS Cardiovascular- deny acute chest pain or shortness of breath or cough or palpitation Respiratory denies cough or short of breath or wheezing Gastrointestinal- nausea Musculoskeletal-denies acute joint swelling or tenderness or redness Neurological- denies acute dysarthria, dysphagia, change in vision Psychiatry- denies depression or SI or HI Skin- denies acute rash or purpura Patient was seen today at bedside Labs and chart reviewed Patient had hematuria today that is why DC was postponed Patient is on Flomax and finasteride Repeat UA revealed hematuria with a suspected UTI, started on ceftriaxone Objective vital signs Vital Sign Date Time Temp Pulse Resp B/P (MAP) Pulse Ox O2 Delivery O2 Flow Rate FiO2 07/24/25 05:00 97.7 58 16 122/72 (89) 95 97.7 07/23/25 20:00 Room Air* 0 21 Total Intake and Output 07/23/25 07/23/25 07/24/25 15:00 23:00 07:00 Intake Total 1040 ml 900 ml Output Total 2200 ml 950 ml Balance -1160 ml -50 ml medications Current Medications Medications Dose Ordered Sig/Joey Route Start Time Stop Time Status Last Admin Dose Admin Ondansetron HCl 4 mg Q4HP PRN IV 07/22/25 00:15 Acetaminophen 650 mg Q6HR PO 07/22/25 00:15 07/24/25 05:34 650 MG Pantoprazole Sodium 40 mg DAILY@0600 PO 07/22/25 06:00 07/24/25 05:34 40 MG Tamsulosin HCl 0.8 mg QPM PO 07/22/25 18:00 07/23/25 18:09 0.8 MG Finasteride 5 mg DAILY PO 07/23/25 10:00 07/23/25 09:07 5 MG Ceftriaxone Sodium 50 ml @ 100 mls/hr DAILY@09 IV 07/23/25 08:45 07/23/25 09:08 100 MLS/HR Examination General examination- awake, alert, oriented HEENT- PEERLA, no acute nasal discharge Cardiovascular- S1-S2 audible, rate and rhythm regular, no murmur Respiratory- CTAB, no wheeze or rhonchi Gastrointestinal-nontender, bowel sound+. Nondistended Musculoskeletal-no acute joint swelling or tenderness or redness Lower extremity- no leg edema Neurological- cranial nerves intact, no acute dysarthria or dysphagia Psychiatry- denies depression or SI or HI Skin- no acute rash or purpura laboratory and microbiology Laboratory Tests 07/24/25 02:11 07/23/25 05:41 Test 07/23/25 05:41 Range/Units Serum Glucose 97 74-106 mg/dL Problem List/Assessment/Plan Problem List/Assessment/Plan Assessment and plan # obstructive uropathy likely due to BPH # acute retention urine likely due to above # bilateral hydroureter likely due to above -patient on Baker's catheter -continue Flomax and finasteride as prescribed -avoid dehydration and constipation -monitor renal function test # acute hematuria -continue IV fluid as prescribed -monitor H&H # hyperbilirubinemia likely due to hepatic steatosis -monitor liver liver enzymes 75 mg test # post renal AZAM likely due to BPH -status post IV fluid -avoid dehydration and nephrotoxic drugs Goals of care, Code status ; discussed with >15 minutes PUD prophylaxis: Pantoprazole DVT prophylaxis: Lovenox Plan discussed with Dr. Vaz , nursing staff, Total time spent on patient evaluation, chart review, assessment and plan, discussion discussion >35 minutes Plan discussed with: Patient, Other (RN) My Orders My Orders Orders - RAMANA WALLER Procedure Category Date Status Time Urine Bacterial DOMINGO 07/23/25 In Process Culture 08:45 Ceftriaxone 1gm/50ml PHA 07/23/25 In Process (Rocephin) 08:45 Schedule For Dc NIDHI 07/23/25 In Process Clinic F/U 12:26 Hemoglobin & LAB 07/24/25 Logged Hematocrit 14:02 Visit Coding STANDARD RES Billing Provider: RENA MARTINEZ MD Date of Service if different f: Jul 24, 2025 Common Visit Codes: [id number] INP/OBS CARE(HIGH) RAMANA WALLER RESIDENT Jul 24, 2025 06:50
[2025-07-24 08:00] VITALS: PULSE 86; RESP 18
[2025-07-24 08:26] LABS: Hematocrit 37.8 % (41.0-53.0); Hemoglobin 12.7 g/dL (13.5-17.5); Mean Corpuscular Hemoglobin 30.0 pg (28.0-32.0); Mean Corpuscular Volume 89.2 fL (80.0-100.0); Nucleated Red Blood Cells % 0.3 %
[2025-07-24 08:35] VITALS: BP 141/90; PULSE 63; RESP 18; TEMP 97.7; O2SAT 95
--- NOTE | 2025-07-24 14:37 | DVHDSRES ---
Discharge Summary Date of Admission Resident Creating Document: RAMANA WALLER RESIDENT Jul 21, 2025 at 23:46 Date of Discharge: Jul 23, 2025 Admitting Diagnosis Acute retention of uterine due to obstructive uropathy AZAM likely due to VMN Labs/Diagnostic Data: Laboratory Results Test 07/24/25 02:11 07/23/25 05:41 07/22/25 16:41 07/22/25 16:25 White Blood Count 5.6 10^3/uL (4.4-10.8) Red Blood Count 4.24 10^6/uL (4.5-5.90) Hemoglobin 12.7 g/dL (13.5-17.5) Hematocrit 37.8 % (41.0-53.0) Mean Corpuscular Volume 89.2 fL (80.0-100.0) Mean Corpuscular Hemoglobin 30.0 pg (28.0-32.0) Mean Corpuscular Hemoglobin Concent 33.7 g/dL (32.0-36.0) Red Cell Distribution Width 13.7 % (11.8-14.3) Platelet Count 225 10^3/uL (140-450) Mean Platelet Volume 8.5 fL (6.9-10.8) Neutrophils (%) (Auto) 54.2 % (37.0-80.0) Lymphocytes (%) (Auto) 34.6 % (10.0-50.0) Monocytes (%) (Auto) 8.4 % (0.0-12.0) Eosinophils (%) (Auto) 2.1 % (0.0-7.0) Basophils (%) (Auto) 0.7 % (0.0-2.0) Neutrophils # (Auto) 3.0 10 ^3/uL (1.6-8.6) Lymphocytes # (Auto) 1.9 10 ^3/uL (0.4-5.4) Monocytes # (Auto) 0.5 10 ^3/uL (0-1.3) Eosinophils # (Auto) 0.1 10 ^3/uL (0-0.8) Basophils # (Auto) 0 10 ^3/uL (0-0.2) Nucleated Red Blood Cells 0.3 % Sodium Level 144 mmol/L (136-145) Potassium Level 4.0 mmol/L (3.5-5.1) Chloride Level 108 mmol/L (98-107) Carbon Dioxide Level 27 mmol/L (20-31) Anion Gap 9 (5-15) Blood Urea Nitrogen 16 mg/dL (9-23) Creatinine 0.87 mg/dL (0.700-1.30) Glomerular Filtration Rate Calc 101 mL/min (>90) BUN/Creatinine Ratio 18.4 (10.0-20.0) Serum Glucose 97 mg/dL (74-106) Calcium Level 8.9 mg/dL (8.7-10.4) Magnesium Level 2.1 mg/dL (1.6-2.6) Total Bilirubin 1.1 mg/dL (0.2-1.0) Aspartate Amino Transferase (AST) 17 U/L (13-40) Alanine Aminotransferase (ALT) 21 U/L (7-40) Alkaline Phosphatase 47 U/L (46-116) Total Protein 6.4 g/dL (5.7-8.2) Albumin 3.7 g/dL (3.2-4.8) Free Thyroxine (T4) Calculated 0.91 ng/dL (0.89-1.76) Free Triiodothyronine (T3) pg/mL 2.80 pg/mL (2.3-4.2) Urine Color Light-brown (Yellow) Urine Clarity Turbid (Clear) Urine pH 5.5 (5.0-9.0) Urine Specific [place] 1.014 (1.001-1.035) Urine Protein 1+ (Negative) Urine Ketones Negative (Negative) Urine Blood 3+ /uL (Negative) Urine Nitrite Negative (Negative) Urine Bilirubin Negative (Negative) Urine Urobilinogen Normal mg/dL (Negative) Urine Leukocyte Esterase Trace /uL (Negative) Urine RBC 25 /hpf (0 - 3) Urine Microscopic WBC 8 /HPF (0-3) Urine Squamous Epithelial Cells Few /hpf (<5) Urine Bacteria Few /hpf (None Seen) Urine Glucose Normal mg/dL (Normal) Test 07/22/25 13:23 07/22/25 04:50 07/21/25 21:09 07/21/25 20:45 Prothrombin Time 10.4 sec (9.3-11.8) Prothrombin Time INR 0.98 (0.9-1.15) Activated Partial Thromboplast Time 28.4 SEC (24.5-34.5) Free Prostate Specific Antigen 1.28 ng/mL (N/A) Percent Free Prostate Specific Ag 12.3 % (.) Prostate Specific Antigen Total 10.4 ng/mL (0.0-4.0) Hemoglobin A1c 6.1 % A1C (<5.7) Direct Bilirubin 0.5 mg/dL (<0.3) Lactate Dehydrogenase 248 U/L (120-246) Vitamin B12 Level 475 pg/mL (211-911) Vitamin D 25-Hydroxy 34.0 ng/mL (30.0-100) Folic Acid 23.69 ng/mL (>5.38) Thyroid Stimulating Hormone (TSH) 0.24 uIU/mL (0.55-4.78) Lactic Acid Level 1.7 mmol/L (0.4-2.0) Urine Mucus Few (None Seen) Urine Opiates Screen Neg (NEGATIVE) Urine Fentanyl Screen Neg (NEGATIVE) Urine Barbiturates Screen Neg (NEGATIVE) Urine Phencyclidine Screen Neg (NEGATIVE) Urine Amphetamines Screen Neg (NEGATIVE) Urine Benzodiazepines Screen Neg (NEGATIVE) Urine Cocaine Screen Neg (NEGATIVE) Urine Cannabinoids Screen Neg (NEGATIVE) Other Laboratory Tests 07/24/25 02:11 07/23/25 05:41 Brief Hx & Hospital Course: Patient is 59 years old male with no significant past medical history came with a complaint of acute retention of urine. Patient reported he has been having urinary dribbling, urgency, difficulty in micturition time to time which got worse for last 3 days. Patient reported he used to take over the counter medication from [facility] [employer] which helped him with the urinary problem but last 3 days he had difficulty in urinating has been some nausea. Patient denied any fever, leg swelling, chest pain, shortness of breaths, change in vision. Initial lab workup revealed leukocytosis WBC 13.1, neutrophilic leukocytosis with neutrophil 90.9, serum creatinine 1.55, GFR 52. Total bilirubin 1.5, indirect bilirubin 0.5, LDH 248, INR 0.98. UDS negative, urinalysis negative for UTI. CT abdomen and pelvis Severe prostatomegaly with appearance of urinary retention and bladder outlet obstruction. Mild bilateral pelviectasis and hydroureter. Renal ultrasound revealed BPH. PSA found to have 10.4. Liver ultrasound revealed hepatic steatosis. Hospital course-during hospital course patient was treated conservatively, patient has a Baker's catheter in. Patient was seen by Urology, recommended for outpatient cystoscopy TBA. Patient's hospital course was complicated with hematuria. Patient is being discharged home with a Baker's catheter in place with the advised to follow up at [place] clinic/PCP/Urology. Patient was discharged with Keflex 250 mg p.o. q.i.d. for 5 days. Continue finasteride and Flomax as prescribed. Patient was hemodynamically stable on discharge. All questions answered. General examination- awake, alert, oriented HEENT- PEERLA, no acute nasal discharge Cardiovascular- S1-S2 audible, rate and rhythm regular, no murmur Respiratory- CTAB, no wheeze or rhonchi Gastrointestinal-nontender, bowel sound+. Nondistended Musculoskeletal-no acute joint swelling or tenderness or redness Lower extremity- no leg edema Neurological- cranial nerves intact, no acute dysarthria or dysphagia Psychiatry- denies depression or SI or HI Skin- no acute rash or purpura Assessment Acute retention of uterine due to BPH Obstructive uropathy AZAM likely due to obstructive uropathy/VMN Elevated PSA Plan Continue Keflex 250 mg p.o. q.6h for 5 days Continue Flomax and finasteride as prescribed Follow up with the PCP/[place] clinic/Urology as per recommendation Condition at Discharge: Stable Final Diagnosis/Problems List Acute retention of uterine due to BPH Obstructive uropathy AZAM likely due to obstructive uropathy/VMN Hematuria Elevated PSA Discharge Disposition: Home Discharge Instruct/Medications Diet: Regular, Renal Activity: No Restrictions, As Tolerated Follow Up/Referral: [place] clinic PCP Urology Medications: As above Scheduled Cephalexin (Keflex Capsule), 1 CAP PO QID Finasteride (Finasteride), 1 TAB PO DAILY Tamsulosin Hcl (Flomax), 2 CAP PO DAILY Discharge Statement: "Patient was advised to return to the ER or call 911 if any headaches, dizziness, shortness of breath, chest pain, abdominal pain, bleeding, fevers, or worsening of medical condition. Patient was counseled about treatment plan, medications, possible side effects, patientverbalized understanding. All questions were answered to the best of my ability. This discharge took greater then 30 minutes in planning, reviewing documentation, counseling the patient, and discussing with other team members." ASSESSMENT ASSESSMENT Assessment Acute retention of uterine due to BPH Obstructive uropathy AZAM likely due to obstructive uropathy Elevated PSA Visit Coding STANDARD RES Billing Provider: RENA MARTINEZ MD Date of Service if different f: Jul 24, 2025 Common Visit Codes: 34046-PIL/OBS DISCH DAY >30min RAMANA WALLER RESIDENT Jul 24, 2025 14:37
== END 2025-07-24 11:30 | disposition home or self-care (01) | DRG 501 ==
LOC: ER 20:19 → OVERFLOW 23:46 → ER 23:54 → WEST WING 07-22 03:29
PROVIDERS: ADMIT Student in an Organized Health Care Education/Training Program; ATTEND Student in an Organized Health Care Education/Training Program
DX: N40.1 Benign prostatic hyperplasia with lower urinary tract symptoms (principal); N17.0 Acute kidney failure with tubular necrosis; R65.11 Systemic inflammatory response syndrome (SIRS) of non-infectious origin with acute organ dysfunction; N13.30 Unspecified hydronephrosis; R33.8 Other retention of urine; E80.6 Other disorders of bilirubin metabolism; N13.8 Other obstructive and reflux uropathy; R97.20 Elevated prostate specific antigen [PSA]; Z80.7 Family history of other malignant neoplasms of lymphoid, hematopoietic and related tissues; Z82.49 Family history of ischemic heart disease and other diseases of the circulatory system
CPT/HCPCS: 36415; 74176; 76705; 76775; 80053; 80307; 81001; 82248; 82306; 82607; 82746; 83036; 83605; 83615; 83735; 84154; 84439; 84443; 84481; 85014; 85018; 85025; 85610; 85730; 87086; 96372; G0378; J1885; Q0162